=== PATIENT | female | born 1925 | race Caucasian/White ===

== ENCOUNTER 2016-07-25 09:35 | Emergency (ER) | payer MEDICARE, OTHER ==
--- NOTE | 2016-07-25 10:29 | EDM.PDOC ---
ED HPI GENERAL MEDICAL PROBLEM - General Chief Complaint: ENT Problem Stated Complaint: SINUSES, BLOODY NOSE, [id number] Time Seen by Provider: 07/25/16 10:29 Source of Information: Reports: Patient History Limitations: Reports: No Limitations - History of Present Illness INITIAL COMMENTS - FREE TEXT/NARRATIVE: sinus congestion with green nasal discharge, pain in maxillary sinuses. is on blood thinner and has had slight ooze from nose of blood since this congestion. - Related Data Allergies Allergy/AdvReac Type Severity Reaction Status Date / Time No Known Allergies Allergy Verified 07/25/16 10:23 Home Meds: Home Meds Apixaban [Eliquis] 5 mg PO BID 07/25/16 [History] Lisinopril 1 tab PO DAILY 07/25/16 [History] Metoprolol Succinate 25 mg PO BID 07/25/16 [History] Rosuvastatin Calcium 20 mg PO DAILY 07/25/16 [History] Past Medical History Cardiovascular History: Reports: Afib, CAD Hematologic History: Reports: Other (See Below) (bilat lower ext blood clots) Social & Family History - Family History Family Medical History: Noncontributory ED ROS GENERAL - Review of Systems Review Of Systems: See Below Constitutional: Reports: No Symptoms HEENT: Reports: Other (runny nose green drainage. occas ooze of bright red blood controlled with wiping occas with tissue. pressure and pain in max sinuses ) Respiratory: Reports: No Symptoms Cardiovascular: Reports: No Symptoms Endocrine: Reports: No Symptoms GI/Abdominal: Reports: No Symptoms : Reports: No Symptoms Musculoskeletal: Reports: No Symptoms Skin: Reports: No Symptoms Neurological: Reports: No Symptoms Psychiatric: Reports: No Symptoms Hematologic/Lymphatic: Reports: No Symptoms Immunologic: Reports: No Symptoms ED EXAM, DIZZINESS - Physical Exam Exam: See Below Exam Limited By: No Limitations General Appearance: Alert Ears: Normal External Exam, Normal Canal, Normal TMs Nose: Other (.tender over max sinus bilat) Throat/Mouth: Normal Inspection, Normal Lips, Normal Teeth, Normal Gums, Normal Oropharynx, Normal Voice, No Airway Compromise Head Exam: Atraumatic, Normocephalic Neck: Normal Inspection, Supple, Non-Tender Respiratory/Chest: No Respiratory Distress, Lungs Clear, Normal Breath Sounds, No Accessory Muscle Use, Chest Non-Tender Cardiovascular: Normal Peripheral Pulses, Regular Rate, Rhythm GI/Abdominal: Normal Bowel Sounds, Soft, Non-Tender Neurological: Alert Back Exam: Normal Inspection Extremities: Normal Inspection Psychiatric: Normal Affect Skin Exam: Warm, Dry, Intact, Normal Color Course - Vital Signs Last Recorded V/S: Last Vital Signs Temp 35.9 C 07/25/16 10:15 Pulse 60 07/25/16 10:15 Resp 18 07/25/16 10:15 BP 148/78 H 07/25/16 10:15 Pulse Ox 97 07/25/16 10:15 - Orders/Labs/Meds Meds: Medications Discontinued Medications Generic Name Dose Route Start Last Admin Trade Name Freq PRN Reason Stop Dose Admin Cephalexin 500 mg 07/25/16 10:39 07/25/16 10:52 Keflex PO 07/25/16 10:40 500 mg ONETIME ONE Administration Departure - Departure Time of Disposition: 10:49 Disposition: Home, Self-Care 01 Condition: good Clinical Impression: Sinusitis, Epistaxis - Discharge Information Instructions: Sinusitis, Adult, [id number], Nosebleed, [id number] Forms: ED Department Discharge Additional Instructions: For sinusitis use antibiotic as directed. For nasal bleeding you may try placing wad of kleenex in nostril and leaving it in, minimal activity. You may try holding direct pressure on the nose, leaning forward and holding pressure for approx 15minutes. Continue your blood thinner. If progressive nasal bleeding that is compromising breathing/swallowing return to the ER.
[2016-07-25 10:30] VITALS: BP 148/78
[2016-07-25] MEDS ORDERED: Cephalexin 500 MG Cap PO ONE (10:39)
== END 2016-07-25 11:10 | disposition home or self-care (01) ==
LOC: DL.ED 09:35
DX: J32.9 Chronic sinusitis, unspecified (principal); R04.0 Epistaxis; I48.91 Unspecified atrial fibrillation; I25.10 Atherosclerotic heart disease of native coronary artery without angina pectoris; Z79.899 Other long term (current) drug therapy
CPT/HCPCS: 99283; A9270